=== PATIENT | male | born 1990 | race Caucasian/White ===

== ENCOUNTER 2017-03-21 10:35 | Emergency (ER) | payer MEDICAID, OTHER ==
[~2017-03-21] VITALS: Ht 180.3 cm; Wt 116.6 kg
[2017-03-21 11:03] VITALS: BP 133/82
== END 2017-03-21 11:51 | disposition home or self-care (01) ==
LOC: ER 10:35
DX: K64.4 Residual hemorrhoidal skin tags (principal)